=== PATIENT | female | born 1955 | race Caucasian/White ===

== ENCOUNTER → 2018-06-08 | Outpatient (REF) | payer MEDICARE ==
[2018-06-08 10:19] LABS: ALBUMIN 4.5 g/dL (3.2-5.0); ALKALINE PHOSPHATASE 94 u/l (38-126); ANION GAP 13 (6-22 (CALC)); BILIRUBIN, TOTAL 0.5 mg/dL (0.0-1.4); BUN 12 mg/dL (8-23); BUN/CREATININE RATIO 18 (12-20 (CALC)); CARBON DIOXIDE 29 mmol/l (22-30); CHLORIDE 103 mmol/l (95-108); CREATININE 0.7 mg/dL (0.5-1.0); GFR > 60 ML/MIN (>=60 (CALC)); GFR FOR AFR.AMER. > 60 ML/MIN (>=60 (CALC)); POTASSIUM 3.9 mmol/l (3.5-5.1); SGOT/AST 21 u/l (9-36); SODIUM 141 mmol/l (137-146); TOTAL PROTEIN 7.3 g/dL (6.3-8.2)
== END | disposition home or self-care (01) ==
LOC: LAB 09:10
PROVIDERS: ATTEND Nurse Practitioner
DX: E83.52 Hypercalcemia (principal); I10 Essential (primary) hypertension

== ENCOUNTER 2021-10-10 11:32 | Emergency (ER) | payer MEDICARE, OTHER ==
[~2021-10-10] VITALS: Ht 165.1 cm; Wt 91.0 kg
[2021-10-10 13:06] VITALS: BP 161/82
== END 2021-10-10 13:15 | disposition home or self-care (01) ==
LOC: ED 11:32
DX: M25.562 Pain in left knee (principal); I10 Essential (primary) hypertension; F32.A Depression, unspecified; X50.0XXA Overexertion from strenuous movement or load, initial encounter; Y93.69 Activity, other involving other sports and athletics played as a team or group

== ENCOUNTER 2023-11-17 06:52 | Day surgery (SDC) | payer MEDICARE, OTHER ==
[~2023-11-17] VITALS: Ht 162.6 cm; Wt 94.8 kg
[~2023-11-17 06:52] MED LIST: AMLODIPINE BES2.5 MG PO; COZAAR100 MG PO; LAMICTAL150 M1 PO; LITHIUM CARB300 MG PO
[2023-11-17] MEDS ORDERED: LACTATED RINGER'S 1,000 ML IV ONE (06:55)
[2023-11-17] MEDS ORDERED: SIMETHICONE 20 MG/0.3 ML PO ONE (06:55)
[2023-11-17] MEDS ORDERED: FAMOTIDINE 10MG/ML 2ML SDV IV ONE (06:55)
[2023-11-17] MEDS ORDERED: STERILE WATER FOR IRRIGATION 1,000 ML BTL IR ONE (06:58)
[2023-11-17 08:41] VITALS: BP 136/67
[2023-11-17] MEDS ORDERED: GLYCOPYRROLATE 0.2 MG/ML IV ONE (12:20)
[2023-11-17] MEDS ORDERED: LIDOCAINE HCL 2% 2ML SDV IV ONE (12:20)
[2023-11-17] MEDS ORDERED: PROPOFOL 200 MG/20 ML VIAL IV ONE (12:20)
== END 2023-11-17 09:08 | disposition home or self-care (01) ==
LOC: ENDO 06:52
PROVIDERS: ATTEND Internal Medicine Gastroenterology
PROC: 0DBM8ZX Excision of Descending Colon, Via Natural or Artificial Opening Endoscopic, Diagnostic (ICD-10-PCS; principal; 2023-11-17)
DX: Z12.11 Encounter for screening for malignant neoplasm of colon (principal); K63.5 Polyp of colon; K64.8 Other hemorrhoids; I10 Essential (primary) hypertension; F31.9 Bipolar disorder, unspecified; G47.30 Sleep apnea, unspecified